=== PATIENT | female | born 1935 | race Two or more races ===

== ENCOUNTER 2017-12-28 07:23 | Outpatient (CLI) | payer OTHER | END 2017-12-28 07:39 | disposition home or self-care (01) | LOC: RX STUDY 07:23 | DX: R10.84 Generalized abdominal pain (principal); K57.30 Diverticulosis of large intestine without perforation or abscess without bleeding; M54.5 Low back pain; Z86.010 Personal history of colon polyps ==

== ENCOUNTER → 2018-01-11 | Outpatient (CLI) | payer OTHER | END | disposition home or self-care (01) | LOC: NUCLEAR 08:30 | DX: C34.12 Malignant neoplasm of upper lobe, left bronchus or lung (principal) | CPT/HCPCS: 78816; A9552 ==

== ENCOUNTER 2018-08-03 13:19 | Inpatient (IN) | payer OTHER ==
[~2018-08-03] VITALS: Ht 124.5 cm; Wt 40.8 kg
[2018-08-03] MEDS ORDERED: GABAPENTIN100 MG PO (15:57)
[2018-08-03] MEDS ORDERED: FAMOTIDINE20 MG PO (15:58)
[2018-08-08] MEDS ORDERED: LIDODERM1 EACH TOP (07:42)
[2018-08-08] MEDS ORDERED: LANSOPRAZOLE30 MG PO (07:43)
[2018-08-08] MEDS ORDERED: Megace PO (07:44)
[2018-08-08] MEDS ORDERED: FENTANYL1 EAC3 TD (07:45)
[2018-08-08] MEDS ORDERED: ZOLOFT25 MG PO (07:46)
== END 2018-08-08 10:35 | disposition home or self-care (01) | DRG 392 ==
LOC: MEDJ 13:19
PROVIDERS: ADMIT Internal Medicine Hematology & Oncology
PROC: 02HV33Z Insertion of Infusion Device into Superior Vena Cava, Percutaneous Approach (ICD-10-PCS; principal; 2018-08-03)
PROC: 3E0336Z Introduction of Nutritional Substance into Peripheral Vein, Percutaneous Approach (ICD-10-PCS; 2018-08-03)
PROC: 8E0ZXY6 Isolation (ICD-10-PCS; 2018-08-03)
DX: K29.00 Acute gastritis without bleeding (principal); C34.12 Malignant neoplasm of upper lobe, left bronchus or lung; C78.2 Secondary malignant neoplasm of pleura; C78.7 Secondary malignant neoplasm of liver and intrahepatic bile duct; C78.6 Secondary malignant neoplasm of retroperitoneum and peritoneum; C78.00 Secondary malignant neoplasm of unspecified lung; K21.9 Gastro-esophageal reflux disease without esophagitis; E86.0 Dehydration; D50.8 Other iron deficiency anemias; E87.8 Other disorders of electrolyte and fluid balance, not elsewhere classified; R63.0 Anorexia; G89.3 Neoplasm related pain (acute) (chronic)
CPT/HCPCS: 240

== ENCOUNTER 2018-12-05 11:23 | Emergency (ER) | payer OTHER ==
[~2018-12-05] VITALS: Ht 149.9 cm; Wt 37.2 kg
[~2018-12-05 11:23] MED LIST: FAMOTIDINE20 MG PO; FENTANYL1 EAC3 TD; GABAPENTIN100 MG PO; LANSOPRAZOLE30 MG PO; LIDODERM1 EACH TOP; Megace PO; ZOLOFT25 MG PO
== END 2018-12-05 18:28 | disposition home or self-care (01) ==
LOC: ER 11:23
DX: G89.3 Neoplasm related pain (acute) (chronic) (principal); R10.84 Generalized abdominal pain; R63.0 Anorexia; R11.2 Nausea with vomiting, unspecified; R06.02 Shortness of breath; C34.12 Malignant neoplasm of upper lobe, left bronchus or lung; C78.2 Secondary malignant neoplasm of pleura; C78.7 Secondary malignant neoplasm of liver and intrahepatic bile duct; C78.6 Secondary malignant neoplasm of retroperitoneum and peritoneum

== ENCOUNTER 2019-02-12 08:37 | Outpatient (CLI) | payer OTHER | END 2019-02-12 08:47 | disposition home or self-care (01) | LOC: NUCLEAR 08:37 | DX: C34.12 Malignant neoplasm of upper lobe, left bronchus or lung (principal); C78.02 Secondary malignant neoplasm of left lung; C78.7 Secondary malignant neoplasm of liver and intrahepatic bile duct; C78.6 Secondary malignant neoplasm of retroperitoneum and peritoneum | CPT/HCPCS: 78816; A9552 ==

== ENCOUNTER 2019-03-09 22:48 | Inpatient (IN) | payer OTHER ==
[~2019-03-09] VITALS: Ht 134.6 cm; Wt 36.3 kg
--- NOTE | 2019-03-09 23:10 | NUR ---
SE RECIBE PACIENTE ALERTA Y ORIENTADA X3 CON LA QUEJA PRINCIPAL DE FALTA DE AIRE, DEBILIDAD Y EDEMA EN EXTREIDADES INFERIORES +3 DESDE HACE VARIOS GILBERT. 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 PACIENTE DE DR. GARCIA. LA PACIENTE REFIERE QUE SE ENCUENTRA EN TX. DE QUIMIOTERAPIA.
[2019-03-09] MEDS ORDERED: VITAMIN C1000 MG (23:16)
--- NOTE | 2019-03-10 00:06 | NUR ---
PACIENTE ALERTA Y ORIENTADA POR RUSTY ESFERAS EN COMPANIA DE FAMILIAR. SE ORIENTA A PACIENTE SOBRE PROCEDIMIENTO Y TX, REFIERE ENTENDER, SE EXTRAE MUESTRAS DE LABORATORIO CON MEDIDAS ASEPTICAS Y SE ADMINISTRA MEDICAMENTOS MYRANDA ORDEN MEDICA.
--- NOTE | 2019-03-10 07:58 | NUR ---
SE RECIBE PTE DEL TURNO ANTERIOR, ALERTA Y ORIENTADA X3 ESFERAS EN GWENDOLYN NIVEL MAS BAJO, JUAREZ DE IDENTIFICACION Y BARANDAS ELEVADAS POR PRECAUCION. SE OBSERVA PTE CON CANULA NASAL A 3L/MIN. PIEL TIBIA AL TACTO. D5%-0.45% NACL @150ML/HR. PENDIENTE A CONSULTA CON DR COOMBS. SE MANTIENE BAJO OBSERVACION.
--- NOTE | 2019-03-10 08:03 | NUR ---
TERAPIA RESPIRATORIA NOTIFICADA A MS MARIA ESTHER.
[2019-03-15] MEDS ORDERED: SERTRALINE HCL50 MG PO (12:56)
[2019-03-15] MEDS ORDERED: FENTANYL1 EAC4 TD (12:57)
== END 2019-03-15 20:04 | disposition expired | DRG 202 ==
LOC: ER 22:48 → MEDJ 03-10 10:29
PROVIDERS: ADMIT Internal Medicine Hematology & Oncology
PROC: 3E0F7GC Introduction of Other Therapeutic Substance into Respiratory Tract, Via Natural or Artificial Opening (ICD-10-PCS; principal; 2019-03-10)
PROC: B54DZZZ Ultrasonography of Bilateral Lower Extremity Veins (ICD-10-PCS; 2019-03-10)
PROC: BB24ZZZ Computerized Tomography (CT Scan) of Bilateral Lungs (ICD-10-PCS; 2019-03-11)
PROC: 3E0336Z Introduction of Nutritional Substance into Peripheral Vein, Percutaneous Approach (ICD-10-PCS; 2019-03-12)
PROC: 0W9930Z Drainage of Right Pleural Cavity with Drainage Device, Percutaneous Approach (ICD-10-PCS; 2019-03-12)
DX: J98.01 Acute bronchospasm (principal); C34.12 Malignant neoplasm of upper lobe, left bronchus or lung; J91.0 Malignant pleural effusion; C78.6 Secondary malignant neoplasm of retroperitoneum and peritoneum; C78.2 Secondary malignant neoplasm of pleura; C79.51 Secondary malignant neoplasm of bone; J44.1 Chronic obstructive pulmonary disease with (acute) exacerbation; K31.1 Adult hypertrophic pyloric stenosis; C78.7 Secondary malignant neoplasm of liver and intrahepatic bile duct; C78.02 Secondary malignant neoplasm of left lung; G89.3 Neoplasm related pain (acute) (chronic); E86.0 Dehydration; K21.9 Gastro-esophageal reflux disease without esophagitis; F43.21 Adjustment disorder with depressed mood; D50.8 Other iron deficiency anemias; Z66 Do not resuscitate; K31.84 Gastroparesis; Z51.5 Encounter for palliative care; R09.02 Hypoxemia; I46.9 Cardiac arrest, cause unspecified; I87.2 Venous insufficiency (chronic) (peripheral)